=== PATIENT | female | born 1940 | race Caucasian/White ===

== ENCOUNTER 2022-01-04 21:38 | Emergency (ER) | payer MEDICARE, SELFPAY ==
--- NOTE | 2022-01-04 21:30 | RT.EKG_ITS ---
APPROVED REPORT Exam: Resting ECG Reason for Exam: chest pain Patient Location: E HR:74 bpm ECG Measurements Heart Rate 74 AXIS CO 187 P 34 QRSd 81 QRS 13 QT 365 T 54 QTc 406 Conclusion Sinus rhythm...normal P axis, V-rate 60- 99
[2022-01-04 21:41] VITALS: O2SAT 97
[2022-01-04 21:42] VITALS: BP 198/63; BP 198/68; PULSE 84; PULSE 88; RESP 18; TEMP 36.5; O2SAT 97; O2SAT 98
--- NOTE | 2022-01-04 21:45 | DI.CT_ITS ---
Exam(s) CT ABDOMEN PELVIS WO EXAM: CT ABDOMEN PELVIS WO CLINICAL HISTORY: abd pain. TECHNIQUE: Imaging Protocol: Axial computed tomography images with coronal and sagittal reformatted images were created and reviewed. COMPARISON: No exams were available for comparison FINDINGS: Lack of IV contrast does limit evaluation of the abdominal pelvic organs. ABDOMEN: Lung Bases: Mild dependent atelectasis. Coronary artery calcifications. Liver: Normal density. There are 2 tiny hypodensities (less than 1 cm). They are too small for furth er characterization but may reflect small cysts. Gallbladder and biliary tract: Cholelithiasis. No biliary ductal dilatation. Pancreas: Normal density, no abnormal calcifications or inflammatory process. Spleen: Normal. Kidneys: Normal size, contour and axis.There is a left renal calcification. This may represent a cor tical calcification or nonobstructing stone. No masses seen. Adrenal glands: No mass is seen. Lymph nodes: Within normal limits. Abdominal Aorta: Abdominal portion non-dilated. Atherosclerosis is present. PELVIS: Bladder:Symmetric distention, no gross wall thickening. Bowel: No obstruction or bowel wall thickening. Appendix is unremarkable. There is diverticulosis se en throughout the colon. No evidence of acute diverticulitis. There does appear to be a duodenal di verticulum adjacent to the pancreatic head. Peritoneal cavity: No ascites, collection or mesenteric inflammatory response. No free air. Reproductive organs: Status post hysterectomy. Bones: Within normal limits. Soft Tissues: There are findings of a prior anterior abdominal wall surgery. There is a thin 7 mm th ick fluid attenuation area between want appears to be mesh in the anterior abdominal wall. Just infe rior to the surgery there appears to be a defect in the anterior abdominal wall in the midline (serie s 3, image 43). There is also a small midline fat containing anterior abdominal wall hernia in the p brian. (Series 3, image 658). IMPRESSION: 1. Prior anterior abdominal wall surgery likely reflecting an umbilical hernia repair with mesh. The re is fluid attenuation seen within the mesh concerning for focal fluid collection. Abscess cannot b e excluded. Please correlate clinically. 2. Anterior abdominal wall defect just inferior to the surgery which may represent dehiscence. 3. Cholelithiasis but no evidence to suggest acute cholecystitis. RADIATION DOSE DELIVERED: 846.82mGy.cm Total DLP DATA REPOSITORY: All CT scans at this facility are submitted to the National Radiology Data Registry (NRDR) Dose Index Registry (DIR) with the [employer] ([employer]). RADIATION OPTIMIZATION: All CT scans at this facility use at least one of these dose optimization te chniques: automated exposure control; mA and/or kV adjustment per patient size (includes targeted exa ms where dose is matched to clinical indication); or iterative reconstruction.
--- NOTE | 2022-01-04 21:48 | W.ED.GENAD ---
Discharge Plan Disposition Patient Disposition: HOME Condition: Improving Discharge Details Clinical Impression: Abdominal pain Primary Care Provider: Unknown,Unknown ED Provider: Liana Alanis Home Meds and New Rx's Prescriptions: Continued atorvastatin 40 mg Tablet 40 mg QHS levothyroxine 137 mcg Tablet 137 mcg DAILY cephalexin 125 mg/5 mL Suspension For Reconstitution 125 mg DAILY risperidone 0.25 mg Tablet 0.25 mg DAILY docusate sodium [Colace] 100 mg Capsule 100 mg PO DAILY digoxin 125 mcg (0.125 mg) Tablet 125 mcg DAILY mirtazapine 15 mg Tablet 15 mg QHS metoprolol tartrate 25 mg Tablet 12.5 mg BID Eliquis 5 mg Tablet 5 mg BID Discharge Instructions Instructions: Abdominal Pain (ED) Additional Instructions: CAT scan performed shows that you have a prior umbilical hernia repair with mesh may possibly be compromised with area of inflammation. Please follow-up with your doctor for further recommendations. Please return for fever worsening pain change in bowel or bladder function or pattern Use acetaminophen 650 mg by mouth every 4-6 hours if needed for the pain Apply ice pack to area for comfort as needed Referrals: Unknown,Unknown [Primary Care Provider] - (Keep your scheduled follow-up appointment with primary care provider) Discharge Data Discharge Date/Time-TO BE ENTERED AT DEPARTURE: 01/04/22 23:44 Medical Decision Making presents to the 'ED with reproducible abdominal pain after lifting a container of clothes today. No fever chills no nausea vomiting denies any change with bowel or bladder function. EKG obtained and shows no acute ST segment changes will draw routine labs for abdominal pain obtain CT of the abdomen and pelvis. , All labs reviewed and showed normal white count. CT results are reviewed with Dr. Matthew who is on-call for surgery. Her pain has resolved after receiving 15 mg of IV Toradol. Imaging Data Radiologic Study: Imaging: CT Scan Radiologist's impression: PROCEDURE INFORMATION: Exam: CT Abdomen And Pelvis Without Contrast Exam date and time: 01/04/2022 10:21 PM Age: 81 years old Clinical indication: Abdominal pain; Localized; Lower; Prior surgery; Surgery date: 6+ months; Surgery type: Umbilical hernia repair with mesh, 10+ yrs ago; Additional info: Abd pain after lifting TECHNIQUE: Imaging protocol: Computed tomography of the abdomen and pelvis without contrast. Radiation optimization: All CT scans at this facility use at least one of these dose optimization techniques: automated exposure control; mA and/or kV adjustment per patient size (includes targeted exams where dose is matched to clinical indication); or iterative reconstruction. COMPARISON: No relevant prior studies available. FINDINGS: Liver: Normal. No mass. Gallbladder and bile ducts: Tiny gallstones. No gallbladder wall thickening or pericholecystic fluid. No biliary duct dilatation. Pancreas: Normal. No ductal dilation. Spleen: Normal. No splenomegaly. Adrenal glands: Normal. No mass. Kidneys and ureters: Normal. No hydronephrosis. Stomach and bowel: Unremarkable. No obstruction. No mucosal thickening. Appendix: Normal appendix. Intraperitoneal space: No free air. No significant fluid collection. Vasculature: Calcified atherosclerotic disease. No abdominal aortic aneurysm. Multiple pelvic phleboliths. Lymph nodes: Unremarkable. No enlarged lymph nodes. Urinary bladder: Unremarkable as visualized. Reproductive: Uterus is absent. Adnexal mass. Bones/joints: Severe degenerative disc disease at L5-S1. Moderate multilevel lower lumbar facet arthropathy. Soft tissues: Surgical clips in the muscular anterior abdominal wall. Superficial and inferior to the surgical clips, appears to be bunched up mesh. Central low density may represent fluid. The muscular anterior abdominal wall appears deficient just inferior to the mesh. 11 mm fascial defect to the left of midline in the pelvis, transmitting fat. No stranding to suggest strangulation. IMPRESSION: 1. Prior umbilical hernia repair with mesh, with possible inferior dehiscence. Low-attenuation in the mesh raises concern for fluid collection, possibly abscess; correlate clinically. 2. Left lower quadrant ventral hernia containing fat. Comparison with prior images would be helpful. 3. Cholelithiasis without evidence of acute cholecystitis. 4. Severe L5-S1 degenerative disc disease. Dictated and Authenticated by: Marciano Orellana MD. Ordering:LEONOR Gaines MD Lab Data Lab results reviewed: Yes I reviewed the patient's lab results. Labs: lab Laboratory Results - last 24 hr 01/04/22 01/04/22 01/04/22 21:57 21:57 21:57 WBC 9.20 RBC 4.16 Hgb 11.6 Hct 36.4 MCV 88 MCH 27.9 MCHC 31.9 L RDW 14.7 H Plt Count 334 MPV 9.5 Immature Gran % 0.3 Neutrophils % 67.3 Lymphocytes % 19.9 Monocytes % 8.7 Eosinophils % 3.3 Basophils % 0.5 Nucleated RBC % 0.0 Absolute Neutrophils 6.19 Absolute Lymphocytes 1.83 Absolute Monocytes 0.80 Absolute Eosinophils 0.30 Absolute Basophils 0.05 Sodium 146 H Potassium 3.7 Chloride 111 H Carbon Dioxide 25.8 Anion Gap 9.2 BUN 26 H Creatinine 1.1 H Estimated GFR/1.73 m2 47.43 Glucose 114 H Calcium 8.3 L Magnesium 2.0 Total Bilirubin 0.3 AST 15 ALT 18 Alkaline Phosphatase 73 Troponin I < 50 Total Protein 6.3 L Albumin 3.0 L Lipase 82 TSH Urine Color Urine Clarity Urine pH Ur Specific [place] Urine Protein Urine Ketones Urine Blood Urine Nitrite Urine Bilirubin Urine Urobilinogen Ur Leukocyte Esterase Urine RBC Urine WBC Ur Epithelial Cells Urine Crystals Urine Bacteria Urine Casts Urine Mucus Urine Other Ur Culture Indicated? Urine Glucose Digoxin 01/04/22 01/04/22 01/04/22 21:57 21:57 22:20 WBC RBC Hgb Hct MCV MCH MCHC RDW Plt Count MPV Immature Gran % Neutrophils % Lymphocytes % Monocytes % Eosinophils % Basophils % Nucleated RBC % Absolute Neutrophils Absolute Lymphocytes Absolute Monocytes Absolute Eosinophils Absolute Basophils Sodium Potassium Chloride Carbon Dioxide Anion Gap BUN Creatinine Estimated GFR/1.73 m2 Glucose Calcium Magnesium Total Bilirubin AST ALT Alkaline Phosphatase Troponin I Total Protein Albumin Lipase TSH 0.74 Urine Color Yellow Urine Clarity Clear Urine pH 5.5 Ur Specific [place] 1.020 Urine Protein Negative Urine Ketones Negative Urine Blood Negative Urine Nitrite Negative Urine Bilirubin Negative Urine Urobilinogen 1.0 H Ur Leukocyte Esterase Small H Urine RBC Negative Urine WBC 10-20 H Ur Epithelial Cells Many Urine Crystals Negative Urine Bacteria Moderate Urine Casts Negative Urine Mucus Negative Urine Other Rare Renal Ur Culture Indicated? No/Sq. Contamination Urine Glucose Negative Digoxin 0.59 L ECG Data Attestation: I personally reviewed and interpreted this ECG (s) as follows: (Sinus rhythm with no acute ST segment changes) HPI General Mode of arrival: ambulatory. Limitations to Documentation: no limitations. Information obtained by: patient. HPI Narrative: patient presents to ED via private vehicle for c/o abdominal and chest pain since lifting a container full of clothing. states she felt she may have strained a muscle in her abdomen. she reports history of hiatal hernia and states she had a recent evaluation and recommendations are for MRI of her heart. she states she has history of afib. she denies shortness of breath. Pain has been constant and is reproducible Related Data Home Medications Medication Instructions Recorded Confirmed apixaban 5 mg tablet (Eliquis) 5 mg BID 01/04/22 01/04/22 atorvastatin 40 mg tablet 40 mg QHS 01/04/22 01/04/22 cephalexin 125 mg/5 mL oral 125 mg DAILY 01/04/22 01/04/22 suspension digoxin 125 mcg (0.125 mg) tablet 125 mcg DAILY 01/04/22 01/04/22 docusate sodium 100 mg capsule 100 mg PO DAILY 01/04/22 01/04/22 (Colace) levothyroxine 137 mcg tablet 137 mcg DAILY 01/04/22 01/04/22 metoprolol tartrate 25 mg tablet 12.5 mg BID 01/04/22 01/04/22 mirtazapine 15 mg tablet 15 mg QHS 01/04/22 01/04/22 risperidone 0.25 mg tablet 0.25 mg DAILY 01/04/22 01/04/22 General Stated Complaint: Abd Prob GEORGINA: 3 Review of Systems All systems reviewed & are unremarkable except as noted in HPI and below Constitutional Constitutional: Denies fever(s) ENT Ears, Nose, Mouth, and Throat: Denies vertigo, Denies dizziness and Denies odynophagia Cardiovascular Cardiovascular: Reports chest pain, Denies syncope and Denies dyspnea Respiratory Respiratory: Denies cough and Denies dyspnea Gastrointestinal Gastrointestinal: Reports abdominal pain, Reports bloating, Denies constipation, Denies diarrhea, Denies nausea, Denies odynophagia and Denies vomiting Musculoskeletal Musculoskeletal: Denies back pain Neurologic Neurologic: Denies vertigo, Denies dizziness, Denies syncope and Denies localized weakness PFSH All Active Problems (Updated 01/04/22 @ 23:18 by Liana Alanis NP) Abdominal pain (Acute) Social History Smoking/Tobacco Use Status: Never Smoking risk assessment performed?: Yes Alcohol Intake: never Drug use: Never Substance use type: does not use Do you feel safe at home: Yes Do you feel safe in your relationship?: Yes Exam Const General: cooperative, healthy appearing, comfortable and no acute distress Nutritional Appearance: average body habitus Orientation: alert and awake HENMT Head: normal to inspection, normocephalic and atraumatic Mouth: oral mucosae normal Resp Effort & Inspection: normal respiratory effort Auscultation: clear to auscultation bilaterally Cardio Rate: regular rate Rhythm: regular rhythm GI Inspection: normal to inspection, no edema and non-distended Palpation: soft and tender in the epigastrum and in the RUQ Auscultation: normal bowel sounds Skin General skin exam: no rashes or lesions noted Neuro General: patient alert, patient awake, patient oriented x3 and no focal motor deficits Cognition: normal cognition Speech: speech normal Gait: normal gait Motor: muscle tone normal throughout Extrem General: normal to inspection, full ROM and no pedal edema Psych Appearance: grossly normal Mental Status: mental status grossly normal Speech and Movement: speech and movement normal Course Vital Signs Vital signs: Vital Signs Temperature 36.5 C 01/04/22 21:42 Pulse 88 01/04/22 21:42 Respiratory Rate 18 01/04/22 21:42 Blood Pressure 198/68 H 01/04/22 21:42 Pulse Oximetry 98 01/04/22 21:42 Temperature 36.5 C 01/04/22 21:42 Temperature Source Tympanic 01/04/22 21:42 Pulse 88 01/04/22 21:42 Respiratory Rate 18 01/04/22 21:42 Respiratory Effort 01/04/22 21:45 Blood Pressure 198/68 H 01/04/22 21:42 Blood Pressure Position Supine 01/04/22 21:42 Pulse Oximetry 98 01/04/22 21:42 Oxygen Delivery Method Room Air 01/04/22 21:42 Oxygen Flow Rate 0 01/04/22 21:42 Pain Level 7 01/04/22 21:42
[2022-01-04 22:21] LABS: Abs Immature Grans 0.03 10^3/uL (0.0-0.06); Absolute Basophil Count 0.05 10^3/uL (0.0-0.2); Absolute Lymphocyte Count 1.83 10^3/uL (1.2-3.4); Absolute Neutrophil Count 6.19 10^3/uL (1.2-6.7); Basophils % 0.5; Eosinophils % 3.3; HCT 36.4 % (36.0-46.0); HGB 11.6 g/dL (11.2-15.7); Immature Grans % 0.3; Lymphocytes % 19.9; MCH 27.9 pg (27.0-33.0); MCHC 31.9 % (32.0-36.0); MCV 88 fL (80-95); MPV 9.5 fL (8.0-11.0); Monocytes % 8.7; Neutrophils % 67.3; Platelet Count 334 10^3/uL (130-400); RBC 4.16 10^6/uL (3.93-5.22); RDW 14.7 % (11.7-14.6); RDW-SD 47.3 fL
[2022-01-04 22:42] LABS: Digoxin 0.59 ng/mL (0.90-2.00); Lipase 82 U/L (73-393)
[2022-01-04 22:45] LABS: ALT 18 U/L (14-59); AST 15 U/L (15-37); Alkaline Phosphatase 73 U/L (46-116); Anion Gap 9.2 mmol/L (3-11); BUN 26 mg/dL (7-18); Bilirubin, Total 0.3 mg/dL (0.2-1.0); CO2 25.8 mmol/L (21.0-32.0); CREATININE 1.1 mg/dL (0.55-1.02); Calcium 8.3 mg/dL (8.5-10.1); Chloride 111 mmol/L (98-107); Estimated GFR 47.43 (mL/min/1.73m2); Glucose 114 mg/dL (74-106); Potassium 3.7 mmol/L (3.5-5.1); Sodium 146 mmol/L (136-145); Total Protein 6.3 g/dL (6.4-8.2); Troponin I < 50 ng/L (<or=60)
[2022-01-04 22:53] LABS: Bilirubin Negative (Negative); Blood Negative (Negative); Clarity Clear (Clear); Glucose Negative (Negative); Ketones Negative (Negative); Leukocyte Esterase Small (Negative); Nitrite Negative (Negative); pH 5.5 (5-8)
[2022-01-04 22:53] LABS: TSH (W/Ref FT4) 0.74 uIU/mL (0.36-3.74)
--- NOTE | 2022-01-04 22:55 | DI.VRAD_ITS ---
PROCEDURE INFORMATION: Exam: CT Abdomen And Pelvis Without Contrast Exam date and time: 01/04/2022 10:21 PM Age: 81 years old Clinical indication: Abdominal pain; Localized; Lower; Prior surgery; Surgery date: 6+ months; Surgery type: Umbilical hernia repair with mesh, 10+ yrs ago; Additional info: Abd pain after lifting TECHNIQUE: Imaging protocol: Computed tomography of the abdomen and pelvis without contrast. Radiation optimization: All CT scans at this facility use at least one of these dose optimization techniques: automated exposure control; mA and/or kV adjustment per patient size (includes targeted exams where dose is matched to clinical indication); or iterative reconstruction. COMPARISON: No relevant prior studies available. FINDINGS: Liver: Normal. No mass. Gallbladder and bile ducts: Tiny gallstones. No gallbladder wall thickening or pericholecystic fluid. No biliary duct dilatation. Pancreas: Normal. No ductal dilation. Spleen: Normal. No splenomegaly. Adrenal glands: Normal. No mass. Kidneys and ureters: Normal. No hydronephrosis. Stomach and bowel: Unremarkable. No obstruction. No mucosal thickening. Appendix: Normal appendix. Intraperitoneal space: No free air. No significant fluid collection. Vasculature: Calcified atherosclerotic disease. No abdominal aortic aneurysm. Multiple pelvic phleboliths. Lymph nodes: Unremarkable. No enlarged lymph nodes. Urinary bladder: Unremarkable as visualized. Reproductive: Uterus is absent. Adnexal mass. Bones/joints: Severe degenerative disc disease at L5-S1. Moderate multilevel lower lumbar facet arthropathy. Soft tissues: Surgical clips in the muscular anterior abdominal wall. Superficial and inferior to the surgical clips, appears to be bunched up mesh. Central low density may represent fluid. The muscular anterior abdominal wall appears deficient just inferior to the mesh. 11 mm fascial defect to the left of midline in the pelvis, transmitting fat. No stranding to suggest strangulation. IMPRESSION: 1. Prior umbilical hernia repair with mesh, with possible inferior dehiscence. Low-attenuation in the mesh raises concern for fluid collection, possibly abscess; correlate clinically. 2. Left lower quadrant ventral hernia containing fat. Comparison with prior images would be helpful. 3. Cholelithiasis without evidence of acute cholecystitis. 4. Severe L5-S1 degenerative disc disease. Dictated and Authenticated by: Marciano Orellana MD. Ordering:LEONOR Gaines MD
[2022-01-04 23:16] LABS: RBC Negative HPF (0-2)
[2022-01-04 23:17] LABS: Bacteria Moderate HPF (Negative); Casts Negative LPF (Negative); Crystals Negative HPF (Negative); Epithelial Cells Many HPF (Negative); Mucus Negative (Negative); Other Cells Rare Renal (Negative)
[2022-01-04 23:18] LABS: C & S Indicated? No/Sq. Contamination
[2022-01-04 23:34] VITALS: BP 146/46; PULSE 83; RESP 16; O2SAT 98
== END 2022-01-04 23:44 | disposition home or self-care (01) ==
PROVIDERS: Emergency Provider Nurse Practitioner Acute Care
DX: R10.9 Unspecified abdominal pain (principal); R07.9 Chest pain, unspecified; X50.0XXA Overexertion from strenuous movement or load, initial encounter
CPT/HCPCS: 80053; 83690; 93005; 96374; 99284; 74176; 80162; 81003; 81015; 83735; 84443; 84484; 85025; 93010; 99283